=== PATIENT | female | born 1930 | race Caucasian/White ===

== ENCOUNTER 2018-03-17 14:48 | Emergency (ER) | payer MEDICARE ==
[~2018-03-17] VITALS: Ht 165.1 cm; Wt 60.0 kg
[~2018-03-17 14:48] MED LIST: AMLO5TAB22 PO; BIOT5000 PO; CALC600T34 PO; CENTCHW3 PO; CO Q100C9 PO; DONE5TAB14 PO; FOLI1 PO; KRIL300C3 PO; LEVO.15 PO; NAME10TA PO; OCUV PO; PREM0.45 PO; VITA400C28 PO
[2018-03-17 15:11] VITALS: BP 124/61; RESP 14; TEMP 97.8; O2SAT 98
[2018-03-17] MEDS ORDERED: SODIUM CHLORIDE 0.9% FLUSH 10 ML FLUSH IV FLUSH PRN (15:30)
--- NOTE | 2018-03-17 15:42 | PD ---
HPI Chief Complaint: Psychiatric Symptoms Time Seen by Provider: 15:23 Travel History International Travel<30 days: No Contact w/Intl Traveler<30days: No Traveled to known affect area: No History of Present Illness HPI The patient was seen and examined in the presence of the nurse. This patient was brought in under police Quintanilla act. She apparently was driving around and the police patrol officer pulled her over and felt that she was confused. She could not properly give her accurate basic information. Patient denies any specific complaint. She feels fine. She admits to having problems with her memory but does not like to call Alzheimer's. She is currently taking medication for dementia. She denies fever or headache or head injury or any other complaint. She denies hallucination or suicidal thought. She denies history of psychiatric disease. Symptom severity is mild. No alleviating factors. No exacerbating factors. She denies alcohol or drug use. PFSH Past Medical History Blood Disorders: No Anxiety: No Depression: No Cancer: No Cardiovascular Problems: Yes Chest Pain: No Congestive Heart Failure: No Diabetes: No Endocrine: No Glaucoma: No Genitourinary: No Hepatitis: No Hiatal Hernia: No Hypertension: Yes Immune Disorder: No Musculoskeletal: No Neurologic: No Psychiatric: No Reproductive: No Respiratory: No Thyroid Disease: Yes ?: Not Menopausal: Yes Past Surgical History Abdominal Surgery: No Cardiac Surgery: No Endocrine Surgery: No Genitourinary Surgery: No Gynecologic Surgery: No Hysterectomy: Yes Joint Replacement: Yes (TKR RIGHT ) Pacemaker: No Thoracic Surgery: No Tonsillectomy: Yes Social History Alcohol Use: Yes (OCCASS) Tobacco Use: No (STOPPED 20 YEARS AGO) Substance Use: No Allergies-Medications (Allergen,Severity, Reaction): Coded Allergies: No Known Allergies (Verified Adverse Reaction, Unknown, 03/17/18) Reported Meds & Prescriptions Reported Meds & Active Scripts Active Reported Ocuvite 1 Tab (Vit A/Vit C/Vit E/Selen/Cu/Zn/Lutei) 1 Tab Tab 1 Tab PO DAILY Krill Oil [place]-3 (Krill Oil) 300 Mg Cap 300 Mg PO DAILY Biotin 5 000 Tab Unknown Dose PO DAILY Donepezil 5 mg 5 Mg Tab 10 Mg PO DAILY Namenda (Memantine) 10 Mg Tab Unknown Dose PO DAILY Co Q 10 (Coenzyme Q10) 100 Mg Cap 100 Mg PO DAILY Amlodipine Besylate 5 mg (Amlodipine Besylate) 5 Mg Tab 1 Tab PO DAILY Folate 1 Mg Tab (Folic Acid) 1 Mg Tab 1 Mg PO DAILY Centrum Silver (Multiple Vitamins W/ Minerals) Silver Chw 1 Tab PO DAILY Calcium 600 Mg Tab 600 Mg PO DAILY Synthroid (Levothyroxine Sodium) 150 Mcg Tab 150 Mcg PO DAILY Premarin (Estrogens Conjugated) 0.45 Mg Tab 0.45 Mg PO DAILY Vitamin D (Cholecalciferol) 400 Unit Tab 1,000 Unit PO DAILY Review of Systems General / Constitutional: No: Fever Eyes: No: Visual changes HENT: No: Headaches Cardiovascular: No: Chest Pain or Discomfort Respiratory: No: Shortness of Breath Gastrointestinal: No: Abdominal Pain Genitourinary: No: Dysuria Musculoskeletal: No: Pain Skin: No Rash Neurologic: No: Weakness Psychiatric: No: Depression Endocrine: No: Polydipsia Hematologic/Lymphatic: No: Easy Bruising Physical Exam Narrative GENERAL: Well-nourished, well-developed patient in no apparent distress. SKIN: Focused skin assessment reveals no rash and nodules. Skin is Warm and dry. HEAD: Atraumatic. Normocephalic. EYES: Pupils equal and round. No scleral icterus. No injection or drainage. ENT: No nasal bleeding or discharge. Mucous membranes pink and moist. NECK: Trachea midline. No JVD. CARDIOVASCULAR: Regular rate and rhythm. No murmur appreciated. RESPIRATORY: No accessory muscle use. Clear to auscultation. Breath sounds equal bilaterally. GASTROINTESTINAL: Abdomen soft, non-tender, nondistended. Hepatic and splenic margins not palpable. MUSCULOSKELETAL: No obvious deformities. No clubbing. No cyanosis. No edema. NEUROLOGICAL: Awake and alert. No obvious cranial nerve deficits. Motor grossly within normal limits. Normal speech. PSYCHIATRIC: Appropriate mood and affect; insight and judgment reduced somewhat Data Data Last Documented VS Vital Signs Date Time Temp Pulse Resp B/P (MAP) Pulse Ox O2 Delivery O2 Flow Rate FiO2 03/17/18 15:11 97.8 14 124/61 (82) 98 Orders Orders Basic Metabolic Panel (Bmp) (03/17/18 15:30) Complete Blood Count With Diff (03/17/18 15:30) Thyroid Stimulating Hormone (03/17/18 15:30) Urinalysis - C+S If Indicated (03/17/18 15:30) Blood Glucose (03/17/18 15:30) Iv Access Insert/Monitor (03/17/18 15:30) Sodium Chloride 0.9% Flush (Ns Flush) (03/17/18 15:30) Drug Screen, Random Urine (03/17/18 15:30) Alcohol (Ethanol) (03/17/18 15:30) Psych Screen (03/17/18 15:30) Urine Culture (03/17/18 15:40) Lorazepam Inj (Ativan Inj) (03/17/18 16:45) Labs Laboratory Tests Test 03/17/18 15:40 White Blood Count 6.2 TH/MM3 Red Blood Count 3.87 MIL/MM3 Hemoglobin 12.4 GM/DL Hematocrit 36.0 % Mean Corpuscular Volume 93.0 FL Mean Corpuscular Hemoglobin 32.0 PG Mean Corpuscular Hemoglobin Concent 34.4 % Red Cell Distribution Width 13.1 % Platelet Count 166 TH/MM3 Mean Platelet Volume 8.0 FL Neutrophils (%) (Auto) 68.4 % Lymphocytes (%) (Auto) 22.3 % Monocytes (%) (Auto) 8.0 % Eosinophils (%) (Auto) 0.9 % Basophils (%) (Auto) 0.4 % Neutrophils # (Auto) 4.2 TH/MM3 Lymphocytes # (Auto) 1.4 TH/MM3 Monocytes # (Auto) 0.5 TH/MM3 Eosinophils # (Auto) 0.1 TH/MM3 Basophils # (Auto) 0.0 TH/MM3 CBC Comment DIFF FINAL Differential Comment Urine Color YELLOW Urine Turbidity CLEAR Urine pH 6.0 Urine Specific [place] 1.014 Urine Protein TRACE mg/dL Urine Glucose (UA) NEG mg/dL Urine Ketones NEG mg/dL Urine Occult Blood NEG Urine Nitrite NEG Urine Bilirubin NEG Urine Urobilinogen LESS THAN 2.0 MG/DL Urine Leukocyte Esterase NEG Urine RBC LESS THAN 1 /hpf Urine WBC 1 /hpf Urine Squamous Epithelial Cells 2 /hpf Urine Bacteria RARE /hpf Urine Hyaline Casts 2 /lpf Urine Mucus FEW /lpf Microscopic Urinalysis Comment CATH-CULTURE IND Blood Urea Nitrogen 27 MG/DL Creatinine 1.20 MG/DL Random Glucose 103 MG/DL Calcium Level 8.9 MG/DL Sodium Level 139 MEQ/L Potassium Level 3.9 MEQ/L Chloride Level 105 MEQ/L Carbon Dioxide Level 27.7 MEQ/L Anion Gap 6 MEQ/L Estimat Glomerular Filtration Rate 43 ML/MIN Thyroid Stimulating Hormone 3rd Gen 0.376 uIU/ML Urine Opiates Screen NEG Urine Barbiturates Screen NEG Urine Amphetamines Screen NEG Urine Benzodiazepines Screen NEG Urine Cocaine Screen NEG Urine Cannabinoids Screen NEG Ethyl Alcohol Level LESS THAN 3 MG/DL MDM Medical Decision Making Medical Screen Exam Complete: Yes Emergency Medical Condition: Yes Medical Record Reviewed: Yes Differential Diagnosis Dementia, hypothyroidism, UTI Narrative Course I have reviewed the patient's electronic medical record. Ordered medical clearance workup to include blood and urine studies. She is neurologically intact without any complaint Her presentation is consistent with someone with mild dementia. I doubt there is any real psychiatric disease manifesting here. However a Quintanilla act has been ordered so I am going to order a psychiatric screen. Labs and urine are basically normal She is awaiting psychiatric evaluation for disposition Diagnosis Primary Impression: Dementia Qualified Codes: G30.9 - Alzheimer's disease, unspecified; F02.80 - Dementia in other diseases classified elsewhere without behavioral disturbance Arcadio Yousif MD Mar 17, 2018 15:42
[2018-03-17 16:00] LABS: AUTOMATED NEUTROPHIL # 4.2 TH/MM3 (1.8-7.7); BASOPHIL % 0.4 % (0.0-2.0); EOSINOPHIL # 0.1 TH/MM3 (0-0.4); EOSINOPHIL % 0.9 % (0.0-4.0); HEMOGLOBIN 12.4 GM/DL (11.6-15.3); LYMPH % 22.3 % (9.0-44.0); LYMPHOCYTE # 1.4 TH/MM3 (1.0-4.8); MEAN CORPUSCULAR HGB CONC 34.4 % (32.0-36.0); MONOCYTE # 0.5 TH/MM3 (0-0.9); NEUT % 68.4 % (16.0-70.0); PLATELET COUNT 166 TH/MM3 (150-450); RED BLOOD COUNT 3.87 MIL/MM3 (4.00-5.30); RED CELL DISTRIBUTION WIDTH 13.1 % (11.6-17.2); WHITE BLOOD COUNT 6.2 TH/MM3 (4.0-11.0)
[2018-03-17 16:17] LABS: BACTERIA, URINE RARE /hpf; BILIRUBIN, URINE NEG (NEG); BLOOD, URINE NEG (NEG); GLUCOSE,URINE NEG (NEG); HYALINE CAST, URINE 2 /lpf (RARE); KETONE, URINE NEG (NEG); MUCUS URINE FEW /lpf (OCC); NITRITE,URINE NEG (NEG); SQUAMOUS EPITHELIAL CELL URINE 2 /hpf (0-5); URINE COLOR YELLOW (YELLW/STRAW); URINE LEUKOCYTE ESTERASE NEG (NEG)
[2018-03-17 16:22] LABS: BICARBONATE 27.7 MEQ/L (21.0-32.0); BLOOD UREA NITROGEN 27 MG/DL (7-18); CALCIUM 8.9 MG/DL (8.5-10.1); CHLORIDE 105 MEQ/L (98-107); GLOMERULAR FILTRATION RATE 43 ML/MIN (>89); GLUCOSE,RANDOM 103 MG/DL (74-106); SODIUM (NA) 139 MEQ/L (136-145)
[2018-03-17] MEDS ORDERED: LORazepam 2 MG/ML VIAL IV PUSH ONE (16:45)
--- NOTE | 2018-03-17 18:14 | PD ---
Physical Exam Date Seen by Provider: Mar 17, 2018 Time Seen by Provider: 18:11 Narrative 87-year-old female patient originally brought under the Quintanilla act and seen by Dr. Johnson. Patient was medically cleared for psychiatric evaluation, and seen by the psychiatric staff who felt that she did not meet Quintanilla act criteria. Patient is felt to have fairly significant dementia and considering she lives alone would be felt to be an unsafe discharge. Case management will be contacted regarding disposition of this patient. Data Data Last Documented VS Vital Signs Date Time Temp Pulse Resp B/P (MAP) Pulse Ox O2 Delivery O2 Flow Rate FiO2 03/17/18 15:11 97.8 14 124/61 (82) 98 Orders Orders Basic Metabolic Panel (Bmp) (03/17/18 15:30) Complete Blood Count With Diff (03/17/18 15:30) Thyroid Stimulating Hormone (03/17/18 15:30) Urinalysis - C+S If Indicated (03/17/18 15:30) Blood Glucose (03/17/18 15:30) Iv Access Insert/Monitor (03/17/18 15:30) Sodium Chloride 0.9% Flush (Ns Flush) (03/17/18 15:30) Drug Screen, Random Urine (03/17/18 15:30) Alcohol (Ethanol) (03/17/18 15:30) Psych Screen (03/17/18 15:30) Urine Culture (03/17/18 15:40) Lorazepam Inj (Ativan Inj) (03/17/18 16:45) Labs Laboratory Tests Test 03/17/18 15:40 White Blood Count 6.2 TH/MM3 Red Blood Count 3.87 MIL/MM3 Hemoglobin 12.4 GM/DL Hematocrit 36.0 % Mean Corpuscular Volume 93.0 FL Mean Corpuscular Hemoglobin 32.0 PG Mean Corpuscular Hemoglobin Concent 34.4 % Red Cell Distribution Width 13.1 % Platelet Count 166 TH/MM3 Mean Platelet Volume 8.0 FL Neutrophils (%) (Auto) 68.4 % Lymphocytes (%) (Auto) 22.3 % Monocytes (%) (Auto) 8.0 % Eosinophils (%) (Auto) 0.9 % Basophils (%) (Auto) 0.4 % Neutrophils # (Auto) 4.2 TH/MM3 Lymphocytes # (Auto) 1.4 TH/MM3 Monocytes # (Auto) 0.5 TH/MM3 Eosinophils # (Auto) 0.1 TH/MM3 Basophils # (Auto) 0.0 TH/MM3 CBC Comment DIFF FINAL Differential Comment Urine Color YELLOW Urine Turbidity CLEAR Urine pH 6.0 Urine Specific [place] 1.014 Urine Protein TRACE mg/dL Urine Glucose (UA) NEG mg/dL Urine Ketones NEG mg/dL Urine Occult Blood NEG Urine Nitrite NEG Urine Bilirubin NEG Urine Urobilinogen LESS THAN 2.0 MG/DL Urine Leukocyte Esterase NEG Urine RBC LESS THAN 1 /hpf Urine WBC 1 /hpf Urine Squamous Epithelial Cells 2 /hpf Urine Bacteria RARE /hpf Urine Hyaline Casts 2 /lpf Urine Mucus FEW /lpf Microscopic Urinalysis Comment CATH-CULTURE IND Blood Urea Nitrogen 27 MG/DL Creatinine 1.20 MG/DL Random Glucose 103 MG/DL Calcium Level 8.9 MG/DL Sodium Level 139 MEQ/L Potassium Level 3.9 MEQ/L Chloride Level 105 MEQ/L Carbon Dioxide Level 27.7 MEQ/L Anion Gap 6 MEQ/L Estimat Glomerular Filtration Rate 43 ML/MIN Thyroid Stimulating Hormone 3rd Gen 0.376 uIU/ML Urine Opiates Screen NEG Urine Barbiturates Screen NEG Urine Amphetamines Screen NEG Urine Benzodiazepines Screen NEG Urine Cocaine Screen NEG Urine Cannabinoids Screen NEG Ethyl Alcohol Level LESS THAN 3 MG/DL MDM Medical Record Reviewed: Yes Supervised Visit with KRISTIN: Yes Differential Diagnosis 87-year-old female patient originally brought under the [place] act and seen by Dr. Johnson. Patient was medically cleared for psychiatric evaluation, and seen by the psychiatric staff who felt that she did not meet Quintanilla act criteria. Patient is felt to have fairly significant dementia and considering she lives alone would be felt to be an unsafe discharge. Case management will be contacted regarding disposition of this patient. Diagnosis Primary Impression: Dementia Qualified Codes: G30.9 - Alzheimer's disease, unspecified; F02.80 - Dementia in other diseases classified elsewhere without behavioral disturbance Condition: Stable Jamey Glover Mar 17, 2018 18:14
--- NOTE | 2018-03-17 18:50 | PD ---
History of Present Illness Chief Complaint: Psychiatric Symptoms Time Seen by Provider: 17:45 Travel History International Travel<30 Days: No Contact w/Intl Traveler<30days: No Known affected area: No Legal Status Legal Status: Quintanilla Act Quintanilla Act Signed By: Mejia Grider History of Present Illness: History of Present Illness HPI The patient is an 87-year-old, female with no self reported history of psychiatric illness, no previous contact with [facility] psychiatry Department, who is brought to the ED under a Quintanilla act initiated by law enforcement who allege that the patient got lost driving from her residence in [facility]. When the police found her she was unable to provide any information regarding her address or phone number or relatives and therefore she was placed under the Quintanilla act and brought to the hospital. Electronic medical record is reviewed. No previous contact with [facility] psychiatry. The patient is seen in Main ED. Sitter is at bedside. She is dressed in hospital gown and is maintaining basic hygiene. She is alert oriented to person , knows she is in a hospital, states it is April 15, unable to tell me the year. Appropriate eye contact. She is anxious about being here. Not oriented to the current situation. Knows that the President is [place] but unable to name the previous President. She is pleasant and attempts to answer questions. Her speech is clear, of normal rate and rhythm, normal volume. She has problems with word finding and example is when I asked her what she had for breakfast she states" I had one of those things you know they come in the plastic, you know". She states that she lives by herself with a cat. She is and unable to tell me when her or how long she was . Patient does not appear to be internally stimulated and denies any hallucinations. I can elicit no delusions or paranoia. There is no suicidal or homicidal ideation , intent or plan. She does report that she is eating well and sleeping well. On recall 3/3, 2/3 and 0/3 words. She was unable to complete serial sevens. Able to spell the word world and able to spell the word world backwards. Patient has a contact by the name of Violeta Robledo at [phone]. I attempted to contact this person to obtain further clinical information. No answer message left for her to call [facility]. PFSH Past Medical History Blood Disorders: No Anxiety: No Depression: No Cancer: No Cardiovascular Problems: Yes Chest Pain: No Congestive Heart Failure: No Diabetes: No Endocrine: No Glaucoma: No Genitourinary: No Hepatitis: No Hiatal Hernia: No Hypertension: Yes Immune Disorder: No Medical other: Yes (CERVICAL STENOSIS-GERD) Musculoskeletal: No Neurologic: No Psychiatric: No Reproductive: No Respiratory: No Thyroid Disease: Yes Tetanus Vaccination: Unknown ?: Not Menopausal: Yes Past Surgical History Abdominal Surgery: No Cardiac Surgery: No Endocrine Surgery: No Genitourinary Surgery: No Gynecologic Surgery: No Hysterectomy: Yes Joint Replacement: Yes (TKR RIGHT ) Pacemaker: No Thoracic Surgery: No Tonsillectomy: Yes Other Surgery: Yes (KNEE REPLACEMENT 2009) Psychiatric History Psychiatric History Hx Psychiatric Treatment: Does not report any. Patient is a poor historian Social History Patient is from [place]. She is . Unable to tell me what she did for a living. Tells me she lives by herself with a cat. Has 2 adopted children who do not live in the area 1 of them being Rip Moreira. Hx Alcohol Use: Yes (She tells me she has a glass of wine with dinner.) Hx Tobacco Use: No (STOPPED 20 YEARS AGO) Hx Substance Use: No Family Psychiatric History Unable to evaluate Allergies-Medications (Allergen,Severity, Reaction): Coded Allergies: No Known Allergies (Verified Adverse Reaction, Unknown, 03/17/18) Reported Meds & Prescriptions Reported Meds & Active Scripts Active Reported Ocuvite 1 Tab (Vit A/Vit C/Vit E/Selen/Cu/Zn/Lutei) 1 Tab Tab 1 Tab PO DAILY Krill Oil [place]-3 (Krill Oil) 300 Mg Cap 300 Mg PO DAILY Biotin 5 000 Tab Unknown Dose PO DAILY Donepezil 5 mg 5 Mg Tab 10 Mg PO DAILY Namenda (Memantine) 10 Mg Tab Unknown Dose PO DAILY Co Q 10 (Coenzyme Q10) 100 Mg Cap 100 Mg PO DAILY Amlodipine Besylate 5 mg (Amlodipine Besylate) 5 Mg Tab 1 Tab PO DAILY Folate 1 Mg Tab (Folic Acid) 1 Mg Tab 1 Mg PO DAILY Centrum Silver (Multiple Vitamins W/ Minerals) Silver Chw 1 Tab PO DAILY Calcium 600 Mg Tab 600 Mg PO DAILY Synthroid (Levothyroxine Sodium) 150 Mcg Tab 150 Mcg PO DAILY Premarin (Estrogens Conjugated) 0.45 Mg Tab 0.45 Mg PO DAILY Vitamin D (Cholecalciferol) 400 Unit Tab 1,000 Unit PO DAILY Review of Systems ROS Limitations: Poor Historian Mental Status Examination Appearance: Appropriate Consciousness: Alert Orientation: Person, Place, Date/Time (Partial) Motor Activity: Other (In bad) Speech: Unremarkable, Other (Problems with word finding) Language: Other (Problems with word finding) Fund of Knowledge: Poor Attention and Concentration: Inadequate Memory: Impaired Mood: Anxious Affect: Appropriate Thought Process & Associations: Intact Thought Content: Appropriate Hallucination Type: None Delusion Type: None Suicidal Ideation: No Suicidal Plan: No Suicidal Intention: No Homicidal Ideation: No Homicidal Plan: No Homicidal Intention: No Insight: Poor Judgment: Poor MDM Medical Decision Making Medical Record Reviewed: Yes Assessment/Plan The patient is an 87-year-old, female with no self reported history of psychiatric illness, no previous contact with [facility] psychiatry Department, who is brought to the ED under a Quintanilla act initiated by law enforcement who allege that the patient got lost driving from her residence in [facility]. When the police found her she was unable to provide any information regarding her address or phone number or relatives and therefore she was placed under the Quintanilla act and brought to the hospital. Patient at the time of the evaluation had received some Ativan but was able to participate in the evaluation. She does not present evidence of unstable mental illness. No evidence of any hallucinations, no suicidal or homicidal ideation verbalized. The patient does not meet criteria to remain under the Quintanilla act. The patient does present evidence of neurocognitive impairment and therefore is unsafe at this time for her to be discharged from the ED. I have discussed this case with AUGUSTUS Rodriguez. Orders Orders Basic Metabolic Panel (Bmp) (03/17/18 15:30) Complete Blood Count With Diff (03/17/18 15:30) Thyroid Stimulating Hormone (03/17/18 15:30) Urinalysis - C+S If Indicated (03/17/18 15:30) Blood Glucose (03/17/18 15:30) Iv Access Insert/Monitor (03/17/18 15:30) Sodium Chloride 0.9% Flush (Ns Flush) (03/17/18 15:30) Drug Screen, Random Urine (03/17/18 15:30) Alcohol (Ethanol) (03/17/18 15:30) Psych Screen (03/17/18 15:30) Urine Culture (03/17/18 15:40) Lorazepam Inj (Ativan Inj) (03/17/18 16:45) Results Vital Signs Date Time Temp Pulse Resp B/P (MAP) Pulse Ox O2 Delivery O2 Flow Rate FiO2 03/17/18 15:11 97.8 14 124/61 (82) 98 Laboratory Tests Test 03/17/18 15:40 White Blood Count 6.2 Red Blood Count 3.87 Hemoglobin 12.4 Hematocrit 36.0 Mean Corpuscular Volume 93.0 Mean Corpuscular Hemoglobin 32.0 Mean Corpuscular Hemoglobin Concent 34.4 Red Cell Distribution Width 13.1 Platelet Count 166 Mean Platelet Volume 8.0 Neutrophils (%) (Auto) 68.4 Lymphocytes (%) (Auto) 22.3 Monocytes (%) (Auto) 8.0 Eosinophils (%) (Auto) 0.9 Basophils (%) (Auto) 0.4 Neutrophils # (Auto) 4.2 Lymphocytes # (Auto) 1.4 Monocytes # (Auto) 0.5 Eosinophils # (Auto) 0.1 Basophils # (Auto) 0.0 CBC Comment DIFF FINAL Differential Comment Urine Color YELLOW Urine Turbidity CLEAR Urine pH 6.0 Urine Specific [place] 1.014 Urine Protein TRACE Urine Glucose (UA) NEG Urine Ketones NEG Urine Occult Blood NEG Urine Nitrite NEG Urine Bilirubin NEG Urine Urobilinogen LESS THAN 2.0 Urine Leukocyte Esterase NEG Urine RBC LESS THAN 1 Urine WBC 1 Urine Squamous Epithelial Cells 2 Urine Bacteria RARE Urine Hyaline Casts 2 Urine Mucus FEW Microscopic Urinalysis Comment CATH-CULTURE IND Blood Urea Nitrogen 27 Creatinine 1.20 Random Glucose 103 Calcium Level 8.9 Sodium Level 139 Potassium Level 3.9 Chloride Level 105 Carbon Dioxide Level 27.7 Anion Gap 6 Estimat Glomerular Filtration Rate 43 Thyroid Stimulating Hormone 3rd Gen 0.376 Urine Opiates Screen NEG Urine Barbiturates Screen NEG Urine Amphetamines Screen NEG Urine Benzodiazepines Screen NEG Urine Cocaine Screen NEG Urine Cannabinoids Screen NEG Ethyl Alcohol Level LESS THAN 3 Date/Time Source Procedure Growth Status 03/17/18 15:40 Urine Catheterized Urine Urine Culture Pending Received Diagnosis Primary Impression: Dementia Psychiatrically Cleared: Yes Condition: Stable Problem Qualifiers Primary Impression: Dementia Qualified Codes: F03.90 - Unspecified dementia without behavioral disturbance Rachelle Vidal Mar 17, 2018 18:50
[2018-03-17 20:00] VITALS: BP 142/84; PULSE 70; RESP 18; O2SAT 99
[2018-03-18 06:18] VITALS: BP 131/67; PULSE 63; RESP 18; TEMP 98; O2SAT 100
[2018-03-18 10:39] VITALS: BP 131/69; PULSE 63; RESP 18; O2SAT 98
--- NOTE | 2018-03-18 15:00 | PD ---
Physical Exam Time Seen by Provider: 14:59 HERO Quintanilla has evaluated the patient, lifted the Quintanilla act and cleared the patient for discharge. Data Data Last Documented VS Vital Signs Date Time Temp Pulse Resp B/P (MAP) Pulse Ox O2 Delivery O2 Flow Rate FiO2 03/18/18 10:39 63 18 131/69 (89) 98 Room Air 03/18/18 06:18 98.0 Orders Orders Basic Metabolic Panel (Bmp) (03/17/18 15:30) Complete Blood Count With Diff (03/17/18 15:30) Thyroid Stimulating Hormone (03/17/18 15:30) Urinalysis - C+S If Indicated (03/17/18 15:30) Blood Glucose (03/17/18 15:30) Iv Access Insert/Monitor (03/17/18 15:30) Sodium Chloride 0.9% Flush (Ns Flush) (03/17/18 15:30) Drug Screen, Random Urine (03/17/18 15:30) Alcohol (Ethanol) (03/17/18 15:30) Psych Screen (03/17/18 15:30) Urine Culture (03/17/18 15:40) Lorazepam Inj (Ativan Inj) (03/17/18 16:45) Diet Regular Basic (03/18/18 Breakfast) Diet Regular Basic (03/18/18 Lunch) Labs Laboratory Tests Test 03/17/18 15:40 White Blood Count 6.2 TH/MM3 Red Blood Count 3.87 MIL/MM3 Hemoglobin 12.4 GM/DL Hematocrit 36.0 % Mean Corpuscular Volume 93.0 FL Mean Corpuscular Hemoglobin 32.0 PG Mean Corpuscular Hemoglobin Concent 34.4 % Red Cell Distribution Width 13.1 % Platelet Count 166 TH/MM3 Mean Platelet Volume 8.0 FL Neutrophils (%) (Auto) 68.4 % Lymphocytes (%) (Auto) 22.3 % Monocytes (%) (Auto) 8.0 % Eosinophils (%) (Auto) 0.9 % Basophils (%) (Auto) 0.4 % Neutrophils # (Auto) 4.2 TH/MM3 Lymphocytes # (Auto) 1.4 TH/MM3 Monocytes # (Auto) 0.5 TH/MM3 Eosinophils # (Auto) 0.1 TH/MM3 Basophils # (Auto) 0.0 TH/MM3 CBC Comment DIFF FINAL Differential Comment Urine Color YELLOW Urine Turbidity CLEAR Urine pH 6.0 Urine Specific [place] 1.014 Urine Protein TRACE mg/dL Urine Glucose (UA) NEG mg/dL Urine Ketones NEG mg/dL Urine Occult Blood NEG Urine Nitrite NEG Urine Bilirubin NEG Urine Urobilinogen LESS THAN 2.0 MG/DL Urine Leukocyte Esterase NEG Urine RBC LESS THAN 1 /hpf Urine WBC 1 /hpf Urine Squamous Epithelial Cells 2 /hpf Urine Bacteria RARE /hpf Urine Hyaline Casts 2 /lpf Urine Mucus FEW /lpf Microscopic Urinalysis Comment CATH-CULTURE IND Blood Urea Nitrogen 27 MG/DL Creatinine 1.20 MG/DL Random Glucose 103 MG/DL Calcium Level 8.9 MG/DL Sodium Level 139 MEQ/L Potassium Level 3.9 MEQ/L Chloride Level 105 MEQ/L Carbon Dioxide Level 27.7 MEQ/L Anion Gap 6 MEQ/L Estimat Glomerular Filtration Rate 43 ML/MIN Thyroid Stimulating Hormone 3rd Gen 0.376 uIU/ML Urine Opiates Screen NEG Urine Barbiturates Screen NEG Urine Amphetamines Screen NEG Urine Benzodiazepines Screen NEG Urine Cocaine Screen NEG Urine Cannabinoids Screen NEG Ethyl Alcohol Level LESS THAN 3 MG/DL MDM Supervised Visit with KRISTIN: No Narrative Course HERO Bush has evaluated the patient, lifted the Quintanilla act and cleared the patient for discharge. The patient's daughter and son are coming to pick her up. [id number]: The patient's son, power of slip mixer, is here to pick the patient up. Her daughter is already at the bedside also. Patient was medically cleared by alternate provider prior to psych screening. Patient has been evaluated by psychiatry and and is now cleared for discharge. Diagnosis Primary Impression: Dementia Qualified Codes: F03.90 - Unspecified dementia without behavioral disturbance Referrals: [facility] Primary Care Physician Patient Instructions: General Instructions, Dementia (ED) Departure Forms: Tests/Procedures Additional Instruction: Follow-up with primary care provider Return to the emergency department immediately with worsening of symptoms Med/Other Pt SpecificInfo: No Change to Meds, No Meds Exist/No RX given Disposition: 01 DISCHARGE HOME Condition: Stable Brie Cook Mar 18, 2018 15:00
== END 2018-03-18 18:51 | disposition home or self-care (01) ==
LOC: NEPD 14:48
DX: F03.90 Unspecified dementia, unspecified severity, without behavioral disturbance, psychotic disturbance, mood disturbance, and anxiety (principal); I10 Essential (primary) hypertension; E07.9 Disorder of thyroid, unspecified; K21.9 Gastro-esophageal reflux disease without esophagitis; Z87.891 Personal history of nicotine dependence; Z79.899 Other long term (current) drug therapy
CPT/HCPCS: 80048; 80307; 81001; 84443; 85025; 87086; 96374; 99285; J2060